=== PATIENT | female | born 1975 | race Caucasian/White ===

== ENCOUNTER 2016-06-09 11:01 | Emergency (ER) | payer MEDICAID ==
[~2016-06-09] VITALS: Ht 157.5 cm; Wt 55.1 kg
[2016-06-09 11:17] VITALS: BP 156/99
[2016-06-09 11:35] LABS: Basophils # (auto) 0.1 uL; Basophils % (auto) 1.5 % (0.0-2.0); DEFINITIVE VIEW TRANSMISSION; Eosinophils # (auto) 0.1 uL; Eosinophils % (auto) 1.6 % (0.0-7.0); Hematocrit 37.3 % (36.0-46.0); Lymphocytes # (auto) 1.5 uL; Lymphocytes % (auto) 27.1 % (10.0-50.0); Mean Corpuscular Hemoglobin 25.1 pg (28.0-32.0); Mean Corpuscular Hgb Conc. 32.1 g/dL (32.0-36.0); Mean Corpuscular Volume 78.2 fL (80.0-100.0); Mean Platelet Volume 7.9 fL (7.4-10.4); Monocytes # (auto) 0.4 uL; Monocytes % (auto) 7.2 % (0.0-12.0); Neutrophils # (auto) 3.5 uL; Neutrophils % (auto) 62.6 % (37.0-80.0); Platelet Count (auto) 437 10^3/uL (140-450); Red Cell Distribution Width 16.1 % (11.6-16.0); White Blood Cell 5.6 10^3/uL (4.4-10.8)
[2016-06-09 12:01] LABS: Albumin 4.2 g/dL (3.4-5.0); Alkaline Phosphatase 68 U/L (45-117); Anion Gap 11 (5-15); Aspartate Aminotransferase 5 U/L (15-37); BUN/Creatinine Ratio 19.6; Bilirubin, Total 0.3 mg/dL (0.2-1.0); Blood Urea Nitrogen 18 mg/dL (7-18); Calcium 9.3 mg/dL (8.5-10.1); Carbon Dioxide 27 mmol/L (21-32); Chloride 107 mmol/L (98-107); GFR African American 88 mL/min; GFR Non-African American 73 mL/min; Glucose 96 mg/dL (74-106); Potassium 4.1 mmol/L (3.5-5.1); Sodium 145 mmol/L (136-145); Total Protein 8.4 g/dL (6.4-8.2)
== END 2016-06-09 14:50 | disposition left against medical advice (07) ==
LOC: ER 11:03
DX: F15.93 Other stimulant use, unspecified with withdrawal (principal); Z53.21 Procedure and treatment not carried out due to patient leaving prior to being seen by health care provider
CPT/HCPCS: 36415; 80053; 80320; 84484; 85025; 93005

== ENCOUNTER 2016-08-14 13:56 | Emergency (ER) | payer MEDICAID ==
[~2016-08-14] VITALS: Ht 157.5 cm; Wt 59.0 kg
[2016-08-14] MEDS ORDERED: SODIUM CHLORIDE 0.9% 1,000 ML IVB ONE (14:09)
[2016-08-14] MEDS ORDERED: ONDANSETRON HCL 4 MG/2 ML VIAL IV ONE (14:15)
[2016-08-14] MEDS ORDERED: HYDROmorphone HCL 2 MG/ML VL IV ONE ×2 (14:15→15:30)
[2016-08-14 14:27] LABS: Basophils # (auto) 0 uL; Basophils % (auto) 0.5 % (0.0-2.0); DEFINITIVE VIEW TRANSMISSION; Eosinophils # (auto) 0.2 uL; Eosinophils % (auto) 2.2 % (0.0-7.0); Hemoglobin 10.3 g/dL (12.2-16.2); Lymphocytes # (auto) 1.6 uL; Lymphocytes % (auto) 21.7 % (10.0-50.0); Mean Corpuscular Hemoglobin 26.1 pg (28.0-32.0); Mean Corpuscular Hgb Conc. 33.2 g/dL (32.0-36.0); Mean Corpuscular Volume 78.5 fL (80.0-100.0); Monocytes # (auto) 0.5 uL; Monocytes % (auto) 7.1 % (0.0-12.0); Neutrophils # (auto) 4.9 uL; Neutrophils % (auto) 68.5 % (37.0-80.0); Platelet Count (auto) 324 10^3/uL (140-450); Red Cell Distribution Width 15.3 % (11.6-16.0); White Blood Cell 7.2 10^3/uL (4.4-10.8)
[2016-08-14 15:07] LABS: Albumin 3.8 g/dL (3.4-5.0); BUN/Creatinine Ratio 23.5; Bilirubin, Total 0.6 mg/dL (0.2-1.0); Calcium 8.7 mg/dL (8.5-10.1); Potassium 3.9 mmol/L (3.5-5.1); Total Protein 7.5 g/dL (6.4-8.2)
[2016-08-14 15:43] LABS: Urine Bilirubin Negative (Negative); Urine Blood Negative /uL (Negative); Urine Color Yellow (Yellow); Urine Glucose Normal (Normal); Urine Ketone Negative (Negative); Urine Mucus FEW (None Seen); Urine RBC 1 /hpf (0 - 4); Urine Squamous Epithelial Cell FEW /hpf (<5); Urine Urobilinogen Normal (Negative); Urine pH 7.5 (5.0-8.0)
[2016-08-14 15:50] LABS: Urine Nitrite POSITIVE (Negative)
[2016-08-14] MEDS ORDERED: PROCHLORPERAZINE EDISYLATE 5 MG/ML 2ML VIAL IV ONE (16:30)
[2016-08-14 17:02] VITALS: BP 126/77
== END 2016-08-14 17:10 | disposition home or self-care (01) ==
LOC: ER 13:56 → EDBD 13:56 → ER 17:10
DX: N39.0 Urinary tract infection, site not specified (principal); M19.90 Unspecified osteoarthritis, unspecified site; Z98.51 Tubal ligation status; Z88.0 Allergy status to penicillin; Z88.6 Allergy status to analgesic agent
CPT/HCPCS: 36415; 74176; 76856; 80053; 81001; 82150; 83690; 84702; 85025; 94761; 96361; 96374; 96375; 96376; 99285; J0780; J1170; J2405; J7030

== ENCOUNTER 2024-09-03 14:58 | Emergency (ER) | payer OTHER, MEDICAID ==
[~2024-09-03] VITALS: Ht 157.5 cm; Wt 68.0 kg
[2024-09-03] MEDS: HYDROcodone-ACET 10/325MG TAB PO ONE (15:30)
[2024-09-03] MEDS: SILVER SULFADIAZINE 1 % TOPICAL CREAM 50GM TOP ONE (15:30)
[2024-09-03] MEDS: KETOROLAC TROMETH 60MG/2ML VIAL IM ONE (15:30)
--- NOTE | 2024-09-03 15:31 | ED.PDOC ---
Burn HPI HPI Comments This is a pleasant but obese 48 year old female BIBA presenting to the ED with chief complaint of burn. Patient reports that while cooking dinner today, she had accidentally spilled grease onto her right forearm and abdomen, causing pain and redness to the regions. Patient denies any blistering, numbness, tingling, or further pringle at this time. Patient denies any facial or eye involvement. Vital signs were stable at arrival. Patient's tetanus is up-to-date. Chief Complaint: Pringle Time Seen by MD: 15:30 Primary Care Provider: UNKNOWN Reviewed notes: Nurses Notes, Medications, Allergies Allergies: Coded Allergies: Penicillins (Verified Allergy, Severe, 01/04/12) Codeine (Verified Allergy, Unknown, 04/25/15) Information Source: Patient Mode of Arrival: EMS Severity: Mild Timing: Hours Duration: Since onset Prehospital treatment: None Type of Burn: Grease Occured in: Closed Space % Burned: 5 Tetanus: UTD Location: Abdomen, Arm Burn Quality: Painful, Red Associated Sign and Symptoms: None Past Medical History PAST MEDICAL HISTORY: Arthritis Surgical History: BTL BIOLOGICAL SCIENCE AIDE History: No Pertinent BIOLOGICAL SCIENCE AIDE History Family History Family History: Unobtainable Social History Smoker: Non-Smoker Alcohol: Occasionally Drugs: Denies Drug Use Lives In: Home Constitutional: denies: chills, diaphoresis, fatigue, fever, malaise, sweats, weakness, others EENTM: denies: blurred vision, double vision, ear bleeding, ear discharge, ear drainage, ear pain, ear ringing, eye pain, eye redness, hearing loss, mouth pain, mouth swelling, nasal discharge, nose bleeding, nose congestion, nose p ain, photophobia, tearing, throat pain, throat swelling, voice changes, others Respiratory: denies: cough, hemoptysis, orthopnea, SOB at rest, shortness of breath, SOB with excertion, stridor, wheezing, others Cardiovascular: denies: chest pain, dizzy spells, diaphoresis, Dyspnea on exertion, edema, irregular heart beat, left arm pain, lightheadedness, palpitations, PND, syncope, others Gastrointestinal: denies: abdomen distended, abdominal pain, blood streaked bowels, constipated, diarrhea, dysphagia, difficulty swallowing, hematemesis, melena, nausea, poor appetite, poor fluid intake, rectal bleeding, rectal pain, vomiting, others Genitourinary: denies: abnormal vagina bleeding, burning, dyspareunia, dysuria, flank pain, frequency, hematuria, incontinence, pain, , vagina discharge, urgency, others Neurological: denies: dizziness, fainting, headache, left sided numbness, left sided weakness, numbness, paresthesia, pre-existing deficit, right sided numbness, right sided weakness, seizure, speech problems, tingling, tremors, weakness, others Musculoskeletal: denies: back pain, gout, joint pain, joint swelling, muscle pain, muscle stiffness, neck pain, others Integumetry: reports: others (Burn to right arm and abdomen); denies: bruises, change in color, change in hair/nails, dryness, laceration, lesions, lumps, rash, wounds Allergic/Immunocompromised: denies: Difficulty Healing, Frequent Infections, Hives, Itching, others Hematologic/Lymphatic: denies: anemia, blood clots, easy bleeding, easy bruising, swollen glands, others Endocrine: denies: excessive hunger, excessive sweating, excessive thirst, excessive urination, flushing, intolerance to cold, intolerance to heat, unexplained weight gain, unexplained weight loss, others Psychiatric: denies: anxiety, bipolar disorder, depression, hopeless, panic disorder, schizophrenia, sleepless, suicidal, others All Other Systems: Reviewed and Negative Physical Exam General Appearance: Moderate Distress (Due to pain related to burn.), Obese HEENT: Normal ENT Inspection, Pharynx Normal, TMs Normal Neck: Full Range of Motion, Non-Tender, Normal, Normal Inspection Respiratory: Chest Non-Tender, Lungs Clear, No Accessory Muscle Use, No Respiratory Distress, Normal Breath Sounds Cardiovascular: No Edema, No JVD, No Murmur, No Gallop, Normal Peripheral Pulses, Regular Rate/Rhythm Breast Exam: Deferred Gastrointestinal: No Organomegaly, Non Tender, No Pulsatile Mass, Normal Bowel Sounds, Soft Genitalia: Deferred Pelvic: Deferred Rectal: Deferred Extremities: Other (Palm sized noncircumferential burn noted to the medial right forearm. No blistering noted. 3 cm oblong patch noted to left stomach region. No blistering noted. Less than 3% total body surface area.) Neurologic: Alert, No Motor Deficits, Normal Affect, Normal Mood, No Sensory Deficits Cerebellar Function: Normal Reflexes: Normal Skin: Dry, Normal Color, Warm Lymphatic: No Adenopathy Was a procedure done? Was a procedure done?: No Differentail Diagnosis (BRN) Differential Diagnosis: Burn-Partial Thickness X-Ray, Labs, Meds, VS Vital Signs Date Time Temp Pulse Resp B/P (MAP) Pulse Ox O2 Delivery O2 Flow Rate FiO2 09/03/24 15:05 98.2 79 20 135/82 (99) 96 98.2 X-Ray, Labs, Meds, VS Comment Patient's wounds were addressed with the Silvadene and wrapping. Advised patient to utilize Silvadene as directed daily and return to ED tomorrow for re- evaluation. Pain medication as needed. Time of 1ST Reevaluation: 15:51 Reevaluation 1ST: Improved Consultation: PCP Patient Education/Counseling: Diagnosis, Treatment Family Education/Counseling: Diagnosis, Treatment, No Family Present Departure 1 Departure Time of Disposition: 15:51 Impression: Primary Impression: Burn Disposition: HOME / SELF CARE / HOMELESS Condition: Stable Additional Instructions: Advised daily dressing changes utilizing the Silvadene topical. Patient should not return to ED tomorrow for re-evaluation. Pain medication as needed. e-Prescriptions Ibuprofen Micronized (Ibuprofen) 800 Mg Tab 800 MG PO Q8HP PRN, #20 TAB Prov: SHYAM MCCARTY PAC 09/03/24 Acetaminophen (Acetaminophen) 500 Mg Tab 500 MG PO Q4HP PRN, #30 TAB Prov: SHYAM MCCARTY PAC 09/03/24 Silver Sulfadiazine (Silvadene) 1 % Cre 1 APPLIC TOP DAILY, #50 GRAMS Prov: SHYAM MCCARTY PAC 09/03/24 Discharged With: Self, Friend Critical Care Note Critical Care Time?: No Stability Stability form required: No Heart Score Heart Score: Heart Score Response (Comments) Value History N/A 0 EKG N/A 0 Age N/A 0 Risk Factors N/A 0 Troponin N/A 0 Total 0 I personally scribed for SHYAM MCCARTY PAC ([email or web address]) on 09/03/24 at 15:31. Electronically submitted by Sanjeev Carr ([email or web address]). SHYAM MCCARTY PAC Sep 03, 2024 15:31
[2024-09-03] MEDS ORDERED: IBUP-1455 PO (15:53)
[2024-09-03] MEDS ORDERED: SILV1CRE82 TOP (15:53)
[2024-09-03] MEDS ORDERED: ACET500T58 PO (15:53)
[2024-09-03 16:39] VITALS: BP 128/73; PULSE 73; RESP 18; TEMP 98.2; O2SAT 99
== END 2024-09-03 16:38 | disposition home or self-care (01) ==
LOC: EDBD 14:58 → EDUNIT# 14:58 → ER 15:05
DX: T22.011A Burn of unspecified degree of right forearm, initial encounter (principal); T21.02XA Burn of unspecified degree of abdominal wall, initial encounter; T31.0 Burns involving less than 10% of body surface; M19.90 Unspecified osteoarthritis, unspecified site; E66.9 Obesity, unspecified; Z88.0 Allergy status to penicillin; Z88.5 Allergy status to narcotic agent; Z98.51 Tubal ligation status; Z68.27 Body mass index [BMI] 27.0-27.9, adult; X10.2XXA Contact with fats and cooking oils, initial encounter; Y93.G3 Activity, cooking and baking; Y92.090 Kitchen in other non-institutional residence as the place of occurrence of the external cause; Y99.8 Other external cause status
CPT/HCPCS: 16020; 96372; 99283; J1885